=== PATIENT | male | born 1955 | race Caucasian/White ===

== ENCOUNTER 2018-07-31 18:16 | Observation (INO) ==
[2018-07-31] MEDS ORDERED: Naloxone 0.4 MG/ML INJ IVP PRN (21:42)
--- NOTE | 2018-07-31 21:56 | Internal Med History&Physical ---
Date of Encounter: 08/01/18 Time of Encounter: 21:00 Internal Medicine - H&P: HPI Chief complaint: TIA Admitted From: Hospital to Hospital Transfer Plans for Post Hospital Care: Home History of present illness: Mr. House is a 62 year old male Patient presented to the emergency room at [facility] for right sided weakness. He says it began when he tried to wake up this afternoon. 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 He says that he was unable to even get the covers off, and struggled to walk over to the bathroom. He is never had symptoms like this before. He has however had history of left foot drop about 8-10 years ago, which resolved on its own. He says a neurologist told him that his wallet was too large and was pinching a nerve in his leg. Upon arrival to the emergency room his symptoms had improved. In the emergency room patient's CBC was within normal limits, BMP was within normal limits. Troponins are undetectable, EKG was normal sinus rhythm and no ischemic changes. CT head was negative for intracranial abnormalities. A chest x-ray showed no acute cardiopulmonary abnormalities. Emergency room provided the patient with aspirin, and transferred him to [place] for further management. Upon my assessment patient states that he still has some right sided weakness, he has tried to go to the bathroom while here in his room and he noticed right leg weakness with walking. He denies changes in speech, but does state that he has a history of left eye lid droop which she has had since . He denies nausea, vomiting, diarrhea, constipation chest pain abdominal pain. Internal Medicine - H&P: Meds Allergy/AdvReac Type Severity Reaction Status Date / Time No Known Allergies Allergy Verified 08/01/18 05:31 All Systems PM: A 10-system review of systems was performed and is negative for pertinent findings except as documented above in the HPI. - Constitutional Vitals: Temp Pulse Resp BP Pulse Ox 97.5 F L 82 16 135/82 95 07/31/18 19:58 07/31/18 19:58 07/31/18 19:58 07/31/18 19:58 07/31/18 19:58 General appearance: Present: cooperative, A&O X 3, pleasant, no acute distress, answers questions appropriately Exam: As above - Head Head exam: Present: normal inspection - Eye Eye exam: Present: EOMI, normal appearance Additional comments: Mild left eyelid drooping, present since . - Neck Neck exam general surgery: Present: full ROM. Absent: tenderness - Respiratory Respiratory exam: Present: CTAB. Absent: chest wall tenderness, decreased breath sounds, rales, respiratory distress, rhonchi, wheezes - Cardiovascular Cardiovascular exam: Present: RRR. Absent: diastolic murmur, systolic murmur - GI/Abdominal GI/Abdominal exam: Present: normal bowel sounds, soft. Absent: tenderness - Extremities Exam Extremities exam: Present: warm, radial pulses palpable and symmetrical. Absent: calf tenderness, pedal edema, tenderness Additional comments: Slight less strength on the right upper extremity, compared to left. Lower extremities equal strength symmetrically. - Neurological Exam Neurological exam: Present: motor sensory deficit, no focal deficits, strengths equal and symetr throughout. Absent: facial droop, speech deficit Additional comments: Slightly decreased strength right upper extremity compared to left upper extremity - Skin Skin exam: Present: dry (here was as when I am ), normal color, warm Internal Med - H&P Results - Labs CBC & Chem 7: 08/01/18 04:29 08/01/18 04:29 - Assessment and plan (1) TIA (transient ischemic attack) Current Visit: Yes Status: Acute Assessment and plan: Patient does have residual right-sided weakness on exam, more notable in the upper extremity than the lower. MRI in the morning PT OT consult Patient already on statin, continue at discharge Consider echocardiogram carotid Dopplers pending MRI results (2) Right sided weakness Current Visit: Yes Status: Acute Assessment and plan: Secondary to likely stroke. Plan as above (3) Hypertension Current Visit: Yes Status: Acute Assessment and plan: Patient takes blood pressure medicines, however he does not know which ones. He has a list of medications in his wallet but he left as well at home. Continue to monitor blood pressures, permissive hypertension allowed Follow-up with patient's pharmacy to complete med rec Qualifiers: Hypertension type: essential hypertension Qualified Code(s): I10 - Essential (primary) hypertension (4) Hyperlipidemia Current Visit: Yes Status: Acute Assessment and plan: Continue statin Qualifiers: Hyperlipidemia type: unspecified Qualified Code(s): E78.5 - Hyperlipidemia, unspecified (5) DVT prophylaxis Current Visit: Yes Status: Acute Assessment and plan: Heparin subcutaneous - Time Spent With Patient Total time spent is greater than 50% in coordination of care (as documented) at patient's floor/unit and/or counseling patient: Greater than 35 minutes
[2018-08-01 04:59] LABS: Hemoglobin 13.7 g/dL (12.9-16.9); Mean Corpuscular HGB Conc 33.4 g/dL (31.6-35.5); Mean Corpuscular Hemoglobin 30.6 pg (28.0-33.3); Mean Corpuscular Volume 91.7 fL (83.0-100.0); Mean Platelet Volume 10.6 fL (9.4-12.4); Platelet Count 198 K/mcL (140-400); Red Blood Count 4.47 M/mcL (4.19-5.50); Red Cell Distribution Width 14.2 % (11.5-14.5)
[2018-08-01 05:23] LABS: BUN/Creatinine Ratio 20 (6-26); Blood Urea Nitrogen 20 mg/dL (8-23); Carbon Dioxide 21 mEq/L (23-29); Chloride 107 mEq/L (98-107); Chol/HDL Ratio 5.4 (0-4.9); Cholesterol 168 mg/dL (< 200); Glucose 125 mg/dL (70-105); HDL Cholesterol 31 mg/dL (40-59); LDL Cholesterol,Calculated 71 mg/dL (0-99); Osmolality,Calculated 288 (280-300); Potassium 3.8 mEq/L (3.5-5.1); Sodium 137 mEq/L (136-145); Triglycerides 330 mg/dL (< 150); eGFR For Non-African Americans > 60 (> 60)
[2018-08-01] MEDS: *HR* Heparin 5,000 UNIT/ML VIAL SQ SCH ×2 (05:38→16:51)
--- NOTE | 2018-08-01 12:09 | Internal Med Progress Note ---
Hospitalist Progress Note - Encounter Date of Encounter: 08/01/18 Time of Encounter: 12:09 - Subjective Interval History: Patient was seen and examined at bedside. Currently no neurological deficits noted. Patient is able to ambulate without difficulty however he does state he feels rather off. MRI does reveal small acute infarct involving left frontal parietal white matter. Discussed findings with the patient and patient's family and answered questions - Exam Vitals: Temp Pulse Resp BP Pulse Ox 97.8 F 80 18 130/82 94 08/01/18 11:48 08/01/18 11:48 08/01/18 11:48 08/01/18 11:48 08/01/18 11:48 Exam: General appearance: Present: cooperative, A&O X 3, pleasant, no acute distress, answers questions appropriately Exam: - Head Head exam: Present: normal inspection - Eye Eye exam: Present: EOMI, normal appearance Additional comments: Mild left eyelid drooping, present since . - Neck Neck exam general surgery: Present: full ROM. Absent: tenderness - Respiratory Respiratory exam: Present: CTAB. Absent: chest wall tenderness, decreased breath sounds, rales, respiratory distress, rhonchi, wheezes - Cardiovascular Cardiovascular exam: Present: RRR. Absent: diastolic murmur, systolic murmur - GI/Abdominal GI/Abdominal exam: Present: normal bowel sounds, soft. Absent: tenderness - Extremities Exam Extremities exam: Present: warm, radial pulses palpable and symmetrical. Absent: calf tenderness, pedal edema, tenderness Additional comments: Slight less strength on the right upper extremity, compared to left. Lower extremities equal strength symmetrically. - Neurological Exam Neurological exam: Present: motor sensory deficit, no focal deficits, strengths equal and symetr throughout. Absent: facial droop, speech deficit Additional comments: Slightly decreased strength right upper extremity compared to left upper extremity - Skin Skin exam: Present: dry, normal color, warm - Assessment and Plan (1) TIA (transient ischemic attack) Current Visit: Yes Status: Acute Assessment and Plan: Patient presented with right-sided weakness and difficulty ambulating which did resolve on its on has a history of hypertension hyperlipidemia no previous strokes. CT of head was negative MRI does reveal a small acute infarct involving left frontal parietal white matter no intracranial hemorrhage or mass effect. Continue with statin Aspirin daily Monitor blood pressure allow for permissive hypertension Consult neurology Continuous cardiac monitoring Neuro checks Cardiac echo Carotid Doppler PT OT eval (2) DVT prophylaxis Current Visit: Yes Status: Acute Assessment and Plan: Heparin subcutaneous (3) Hyperlipidemia Current Visit: Yes Status: Acute (4) Hypertension Current Visit: Yes Status: Acute Assessment and Plan: 1 we will hold blood pressure medicine for now allowing for permissive hypertension and resume upon discharge Currently blood pressure is controlled - Time Spent with Patient Total time spent is greater than 50% in coordination of care (as documented) at patient's floor/unit and/or counseling patient: Internal Medicine: Result - Labs CBC & Chem 7: 08/01/18 04:29 08/01/18 04:29 Labs: Short CBC 08/01/18 Range/Units 04:29 WBC 6.3 (4.3-11.1) K/mcL Hgb 13.7 (12.9-16.9) g/dL Hct 41.0 (37.5-50.1) % Plt Count 198 (140-400) K/mcL BMP 08/01/18 04:29 Sodium 137 Potassium 3.8 Chloride 107 Carbon Dioxide 21 L BUN 20 Creatinine 0.99 Glucose 125 H Calcium 9.0 - Impressions Impressions Brain MRI 08/01/18 21:45 IMPRESSION: Small acute infarct involving left frontal-parietal white matter. No intracranial hemorrhage or mass effect. Background of mild cerebral white matter disease, most likely chronic microvascular ischemic change. The findings were sent to the Radiology Results Communication [facility] at 11:50 am on 08/01/2018to be communicated to a licensed caregiver. D/ / Jani Saeed MD / Jani Saeed MD Interpreting Provider: Jani Saeed MD Consult Discharge Plan - Plan Referrals: Yandy Bates MD [Primary Care Provider] - (3) Hyperlipidemia Qualifiers: Hyperlipidemia type: unspecified Qualified Code(s): E78.5 - Hyperlipidemia, unspecified (4) Hypertension Qualifiers: Hypertension type: essential hypertension Qualified Code(s): I10 - Essential (primary) hypertension
[2018-08-01] MEDS: Aspirin 81 MG TAB.CHEW PO SCH (14:41)
--- NOTE | 2018-08-01 16:08 | Neurology - Consult Note ---
Date of Encounter: 08/01/18 Time of Encounter: 16:01 Assessment and Plan (1) CVA (cerebral vascular accident) Current Visit: Yes Status: Acute 8o year old woman with HTN, hyperlipidemia, obesity who developed acute onset of right sided weakness, slurred speech and balance difficulty, consistent with the finding of small lacunar infarct at the left fronto-parietal region. This is likely small vessel lacunar infarct related to hyperlipidemia/HTN/genetics. Will recommend full stroke work up including echocardiography, carotid artery duplex study. Agree with Aspirin 81mg daily, statin therapy for hyperlipidemia. He may benefit from outpatient PT. May benefit from getting outpatient sleep study. Total time spend on this patient is approximately 50 minutes and more than 50% of time was spent on direct patient care Qualifiers: CVA mechanism: unspecified Qualified Code(s): I63.9 - Cerebral infarction, unspecified History of Present Illness Chief complaint: right sided weakness and slurred speech HPI: Mr. House is a 62 year old male with PMH significant for obesity, HTN, hyperlipidemia who developed acute onset of right sided weakness, slurred speech and balance difficulty. 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 In the beginning he had to use his left hand to help moving his right hand and arm. MRI of brain showed small acute ischemic infarct at the left frontal parietal white matter, no edema and no mass effects noted. Today at the time of the interview, his weakness is significantly improved. Still has mild loss of dexterity to the right side. Is able to walk without assistance. Started him on Aspirin 81mg daily Medications and Allergies Levothyroxine [Synthroid] 50 mcg PO DAILY 08/01/18 [History] Losartan/Hydrochlorothiazide [Hyzaar 100-25 Tablet] 1 tab PO DAILY 08/01/18 [History] Lovastatin [Mevacor] 20 mg PO HS 08/01/18 [History] Tamsulosin HCl [Flomax] 0.4 mg PO DAILY 08/01/18 [History] dilTIAZem HCl [Diltiazem 24Hr Cd] 120 mg PO DAILY 08/01/18 [History] Allergy/AdvReac Type Severity Reaction Status Date / Time No Known Allergies Allergy Verified 08/01/18 05:31 All Systems: The remainder of the systems were reviewed and are negative Physical Examination - Vital Signs Vital Signs: Initial Vital Signs Temp Pulse Resp BP Pulse Ox 97.5 F L 82 16 135/82 95 07/31/18 19:58 07/31/18 19:58 07/31/18 19:58 07/31/18 19:58 07/31/18 19:58 - Constitutional General appearance: comfortable - Neurologic Detailed motor examination: full strength in all major muscle groups (Slightly loss of dexterity noted to the right arm and leg) Motor examination - right side: 5/5: deltoids, biceps, triceps, wrist flexion, wrist extension, environmental marketing representative, hip flexors, tibialis Anterior, quadriceps, toe extension (EHL), plantarflexion Motor examination - left side: 5/5: deltoids, biceps, triceps, wrist flexion, wrist extension, hip flexors, environmental marketing representative, quadriceps, tibialis Anterior, toe extension (EHL), plantarflexion Detailed sensory examination: intact Posture: other (None) Reflex and gait examination: intact Reflexes: Biceps: 1+, Triceps: 1+, Brachioradialis: 1+, Patella: 1+, Achilles: 1+ Mental Status Examination: awake, alert, oriented to person, oriented to place, oriented to time, follows commands appropriately, answers questions appropriately, no agnosia, no aphasia, no aproxia Cranial nerve examination: PERRL, EOMI, visual rivero intact, corneal reflexes brisk symmetrically, sensory to face intact, mastication intact, no facial asymmetry is present, no dysarthria, hearing is intact symmetrically, soft palate elevates bilaterally upon phonation, gag reflex intact, flexes SCM and trapezius muscles symmetrically with full power, tongue protrudes midline, no atrophy or facial fasiculations present Cerebellar examination: no dysmetria, performs finger to nose and heel to quiroga symmetrically without ataxia, no gait ataxia, no truncal ataxia, no difficulty with rapid alternating movements Results - Laboratory Findings CBC and BMP: 08/01/18 04:29 08/01/18 04:29 Abnormal lab findings: Abnormal lab results Carbon Dioxide 21 mEq/L (23-29) L 08/01/18 04:29 Glucose 125 mg/dL (70-105) H 08/01/18 04:29 Triglycerides 330 mg/dL (< 150) H 08/01/18 04:29 VLDL Cholesterol, Calc 66 mg/dL (< 31) H 08/01/18 04:29 HDL Cholesterol 31 mg/dL (40-59) L 08/01/18 04:29 Cholesterol/HDL Ratio 5.4 (0-4.9) H 08/01/18 04:29 - Diagnostic Findings Additional findings: MRI OF THE BRAIN WITHOUT CONTRAST 08/01/2018 11:40 am TECHNIQUE: Multiplanar multisequence MRI of the brain was performed without the administration of intravenous contrast. COMPARISON: None. HISTORY: ORDERING SYSTEM PROVIDED HISTORY: Right-sided weakness Right-sided weakness for 1 day FINDINGS: INTRACRANIAL STRUCTURES/VENTRICLES: Small acute infarct involving left frontal-parietal centrum semiovale. Susceptibility weighted imaging is limited by motion artifact. There is no evidence of intracranial hemorrhage. The ventricles and cisterns are normal in size and configuration. Normal intracranial arterial flow voids are preserved. Mild spotty cerebral white matter disease is present. Sellar and suprasellar regions are unremarkable. The cerebellar tonsils are normal in position. ORBITS: The visualized portion of the orbits demonstrate no acute abnormality. SINUSES: The visualized paranasal sinuses and mastoid air cells are well aerated. BONES/SOFT TISSUES: The bone marrow signal intensity appears normal. The soft tissues demonstrate no acute abnormality. MR/MR head/brain wo con IMPRESSION: Small acute infarct involving left frontal-parietal white matter. No intracranial hemorrhage or mass effect. Background of mild cerebral white matter disease, most likely chronic microvascular ischemic change. The findings were sent to the Radiology Results Communication Center at 11:50 am on 08/01/2018to be communicated to a licensed caregiver. D/ / Jani Saeed MD / Jani Saeed MD Interpreting Provider: Jani Saeed MD Consult Discharge Plan - Plan Referrals: Yandy Bates MD [Primary Care Provider] -
[2018-08-01] MEDS ORDERED: Perflutren Lipid Microsphere 1.3 ML in 0.9 % Sodium Chloride 8.7 ML IVP ONE (21:31)
[2018-08-02] MEDS: *HR* Heparin 5,000 UNIT/ML VIAL SQ SCH ×2 (06:14→17:04)
[2018-08-02] MEDS: Aspirin 81 MG TAB.CHEW PO SCH (07:50)
--- NOTE | 2018-08-02 08:42 | Neurology Progress Note ---
Addendum entered and electronically signed by Nawaf Chilel MD 08/02/18 13:35: Patient is seen and examined. Carotid artery duplex and echocardiography results explained to the patient. he is to get MARIANNA per game advisor recommendation due to the finding of echogenic structure at the tip f right caronary cups which is likely incidental finding and has no relationship with the current stroke. Carotid artery duplex showed bilateral ICA are patent. No further testing will be ordered from neurology perspective. Please continue medical and supportive care Original Note: <Javier Jean - Last Filed: 08/02/18 13:18> Date of Encounter: 08/02/18 Time of Encounter: 08:42 Assessment and Plan (1) CVA (cerebral vascular accident) Current Visit: Yes Status: Acute Patient has small lacunar infarct at the left frontoparietal region. His third speech has resolved. He has difficulty with finger to nose, heel to quiroga and rapid alternating movements on the right side but this is improved since admissi on. Echocardiogram: LVEF 50-55 percent, no mention of PFO. Patient does have a 0.5x0.7cm echogenic structure at the tip of the right coranary cusp. will need MARIANNA as per report. Carotid artery duplex bilaterally are preliminarily negative Patient will need to be discharged on aspirin, statin. Patient will follow up with Dr. Chilel for outpatient sleep study. Qualifiers: CVA mechanism: unspecified Qualified Code(s): I63.9 - Cerebral infarction, unspecified (2) Hypertension Current Visit: Yes Status: Acute Qualifiers: Hypertension type: essential hypertension Qualified Code(s): I10 - Essential (primary) hypertension (3) Hyperlipidemia Current Visit: Yes Status: Acute Qualifiers: Hyperlipidemia type: unspecified Qualified Code(s): E78.5 - Hyperlipidemia, unspecified Subjective Principal diagnosis: CVA Interval history: Patient reports that he continues to have trouble with coordination on his right side. His right-sided weakness has improved and slurred speech has resolved. He is able to ambulate independently. He is tolerating his diet. Objective - Constitutional Vitals: Temp Pulse Resp BP Pulse Ox 97.6 F 83 16 155/106 95 08/02/18 06:59 08/02/18 06:59 08/02/18 06:59 08/02/18 06:59 08/02/18 07:55 - Neurological Exam Sensorimotor examination: Present: intact Motor Examination: Present: full strength in all major muscle groups (Slightly loss of dexterity noted to the right arm and leg) Motor examination - right side: 5/5: deltoids, biceps, triceps, wrist flexion, wrist extension, cessation systems outreach specialist, hip flexors, tibialis Anterior, quadriceps, toe extension (EHL), plantarflexion Motor examination - left side: 5/5: deltoids, biceps, triceps, wrist flexion, wrist extension, hip flexors, cessation systems outreach specialist, quadriceps, tibialis Anterior, toe extension (EHL), plantarflexion Sensation intact: Present: intact Posture: Present: other (None) Reflex and gait examination: intact Reflexes: Biceps: 1+, Triceps: 1+, Brachioradialis: 1+, Patella: 1+, Achilles: 1+ Mental Status Examination: Present: awake, alert, oriented to person, oriented to place, oriented to time, follows commands appropriately, answers questions appropriately, no agnosia, no aphasia, no aproxia Cranial nerve examination: Present: PERRL, EOMI, visual rivero intact, sensory to face intact, mastication intact, no facial asymmetry is present, no dysarthria, hearing is intact symmetrically, soft palate elevates bilaterally upon phonation, flexes SCM and trapezius muscles symmetrically with full power, tongue protrudes midline, no atrophy or facial fasiculations present Cerebellar examination: Present: no dysmetria, performs finger to nose and heel to quiroga symmetrically without ataxia (Difficulty with right [id number] and [id number]), no gait ataxia, no truncal ataxia, no difficulty with rapid alternating movements (Reduced on the right and) Results - Laboratory Findings CBC and BMP: 08/01/18 04:29 08/02/18 09:35 Abnormal lab findings: Abnormal lab results Carbon Dioxide 21 mEq/L (23-29) L 08/01/18 04:29 Glucose 125 mg/dL (70-105) H 08/01/18 04:29 Triglycerides 330 mg/dL (< 150) H 08/01/18 04:29 VLDL Cholesterol, Calc 66 mg/dL (< 31) H 08/01/18 04:29 HDL Cholesterol 31 mg/dL (40-59) L 08/01/18 04:29 Cholesterol/HDL Ratio 5.4 (0-4.9) H 08/01/18 04:29 Consult Discharge Plan - Plan Additional Instructions: You will be provided a prescription for outpatient Physical Therapy upon D/C home. You can take this prescription to any Physical Therapy facility you would like to arrange the therapy. Referrals: Yandy Bates MD [Primary Care Provider] - 08/07/18 2:00 pm <Nawaf Chilel - Last Filed: 08/02/18 13:32> Date of Encounter: 08/02/18 Assessment and Plan (1) CVA (cerebral vascular accident) Current Visit: Yes Status: Acute Qualifiers: CVA mechanism: unspecified Qualified Code(s): I63.9 - Cerebral infarction, unspecified Objective - Constitutional Vitals: Temp Pulse Resp BP Pulse Ox 97.7 F 87 18 145/89 95 08/02/18 11:00 08/02/18 11:00 08/02/18 11:00 08/02/18 11:00 08/02/18 11:00 Results - Laboratory Findings CBC and BMP: 08/01/18 04:29 08/02/18 09:35 Abnormal lab findings: Abnormal lab results Carbon Dioxide 22 mEq/L (23-29) L 08/02/18 09:35 Glucose 228 mg/dL (70-105) H 08/02/18 09:35 Triglycerides 330 mg/dL (< 150) H 08/01/18 04:29 VLDL Cholesterol, Calc 66 mg/dL (< 31) H 08/01/18 04:29 HDL Cholesterol 31 mg/dL (40-59) L 08/01/18 04:29 Cholesterol/HDL Ratio 5.4 (0-4.9) H 08/01/18 04:29
[2018-08-02] MEDS: Diltiazem CD (24hr) 120 MG CAPSULE PO SCH (09:43)
[2018-08-02] MEDS: Losartan/HCTZ 50-12.5 TABLET PO SCH (09:59)
[2018-08-02 10:17] LABS: BUN/Creatinine Ratio 22 (6-26); Blood Urea Nitrogen 20 mg/dL (8-23); Calcium 8.8 mg/dL (8.6-10.3); Carbon Dioxide 22 mEq/L (23-29); Chloride 106 mEq/L (98-107); Glucose 228 mg/dL (70-105); Osmolality,Calculated 292 (280-300); Potassium 3.9 mEq/L (3.5-5.1); Sodium 136 mEq/L (136-145); eGFR For Non-African Americans > 60 (> 60)
--- NOTE | 2018-08-02 19:21 | Internal Med Progress Note ---
Hospitalist Progress Note - Encounter Date of Encounter: 08/02/18 Time of Encounter: 15:00 - Subjective Interval History: Patient was seen and examined at bedside. Currently no neurological deficits noted. Patient is able to ambulate without difficulty -I did review carotid duplex results as well as cardiac echo results- he will undergo MARIANNA in am per c ardiology recommendations. He verbalized understanding - Exam Vitals: Temp Pulse Resp BP Pulse Ox 97.9 F 79 16 120/79 94 08/02/18 19:14 08/02/18 19:14 08/02/18 19:14 08/02/18 19:14 08/02/18 19:14 Exam: General appearance: Present: cooperative, A&O X 3, pleasant, no acute distress, answers questions appropriately Exam: - Head Head exam: Present: normal inspection - Eye Eye exam: Present: EOMI, normal appearance Additional comments: Mild left eyelid drooping, present since . - Neck Neck exam general surgery: Present: full ROM. Absent: tenderness - Respiratory Respiratory exam: Present: CTAB. Absent: chest wall tenderness, decreased breath sounds, rales, respiratory distress, rhonchi, wheezes - Cardiovascular Cardiovascular exam: Present: RRR. Absent: diastolic murmur, systolic murmur - GI/Abdominal GI/Abdominal exam: Present: normal bowel sounds, soft. Absent: tenderness - Extremities Exam Extremities exam: Present: warm, radial pulses palpable and symmetrical. Absent: calf tenderness, pedal edema, tenderness Additional comments: Slight less strength on the right upper extremity, compared to left. Lower extremities equal strength symmetrically. - Neurological Exam Neurological exam: Present: motor sensory deficit, no focal deficits, strengths equal and symetr throughout. Absent: facial droop, speech deficit Additional comments: Slightly decreased strength right upper extremity compared to left upper extremity - Skin Skin exam: Present: dry, normal color, warm - Assessment and Plan (1) CVA (cerebral vascular accident) Current Visit: Yes Status: Acute Assessment and Plan: Patient has small lacunar infarct at the left frontoparietal region. No weakness or slurre speech noted Echocardiogram: LVEF 50-55 percent, no mention of PFO. Patient does have a 0.5x0.7cm echogenic structure at the tip of the right coranary cusp. Will undergo MARIANNA in am per cardioogy report recommendations NPO after midnight for MARIANNA Carotid artery duplex bilaterally are preliminarily negative Patient will need to be discharged on aspirin, statin per neurology recommendations Patient will follow up with Dr. Chilel for outpatient sleep study. PT as outpatient (2) Hypertension Current Visit: Yes Status: Acute Assessment and Plan: 1 we will hold blood pressure medicine for now allowing for permissive hypertension and resume upon discharge Currently blood pressure is controlled 08/02 we will resume home medications (3) Hyperlipidemia Current Visit: Yes Status: Acute Assessment and Plan: cont with statin - Time Spent with Patient Total time spent is greater than 50% in coordination of care (as documented) at patient's floor/unit and/or counseling patient: Internal Medicine: Result - Labs CBC & Chem 7: 08/01/18 04:29 08/02/18 09:35 Labs: BMP 08/02/18 09:35 Sodium 136 Potassium 3.9 Chloride 106 Carbon Dioxide 22 L BUN 20 Creatinine 0.93 Glucose 228 H Calcium 8.8 Consult Discharge Plan - Plan Additional Instructions: You will be provided a prescription for outpatient Physical Therapy upon D/C home. You can take this prescription to any Physical Therapy facility you would like to arrange the therapy. Referrals: Yandy Bates MD [Primary Care Provider] - 08/07/18 2:00 pm (1) CVA (cerebral vascular accident) Qualifiers: CVA mechanism: unspecified Qualified Code(s): I63.9 - Cerebral infarction, unspecified (2) Hypertension Qualifiers: Hypertension type: essential hypertension Qualified Code(s): I10 - Essential (primary) hypertension (3) Hyperlipidemia Qualifiers: Hyperlipidemia type: unspecified Qualified Code(s): E78.5 - Hyperlipidemia, unspecified
[2018-08-03 03:33] LABS: Basophils % 0.4 %; Eosinophils # 0.2 K/mcL (0.0-0.6); Hematocrit 45.5 % (37.5-50.1); Immature Granulocytes % 0.3 % (0-4); Lymphocytes # 2.5 K/mcL (0.6-4.6); Lymphocytes % 30.9 %; Mean Corpuscular HGB Conc 34.1 g/dL (31.6-35.5); Mean Corpuscular Hemoglobin 30.7 pg (28.0-33.3); Mean Corpuscular Volume 90.1 fL (83.0-100.0); Mean Platelet Volume 10.5 fL (9.4-12.4); Monocytes # 0.8 K/mcL (0.0-1.3); Monocytes % 9.4 %; Neutrophils # 4.5 K/mcL (1.6-8.9); Platelet Count 211 K/mcL (140-400); Red Blood Count 5.05 M/mcL (4.19-5.50); Red Cell Distribution Width 13.9 % (11.5-14.5)
[2018-08-03 03:34] LABS: Hemoglobin 15.5 g/dL (12.9-16.9)
[2018-08-03 03:50] LABS: BUN/Creatinine Ratio 15 (6-26); Blood Urea Nitrogen 15 mg/dL (8-23); Calcium 9.3 mg/dL (8.6-10.3); Carbon Dioxide 24 mEq/L (23-29); Chloride 105 mEq/L (98-107); Glucose 115 mg/dL (70-105); Osmolality,Calculated 284 (280-300); Potassium 4.4 mEq/L (3.5-5.1); Sodium 136 mEq/L (136-145); eGFR For Non-African Americans > 60 (> 60)
[2018-08-03] MEDS: *HR* Heparin 5,000 UNIT/ML VIAL SQ SCH (05:23)
[2018-08-03] MEDS ORDERED: Lidocaine Viscous Oral Soln 15 ML SOLUTION MM PRN (10:06)
[2018-08-03] MEDS ORDERED: 0.9 % Sodium Chloride 500 ML IVC ONE (10:07)
[2018-08-03] MEDS ORDERED: *HR* Midazolam HCl 2 MG/2 ML VIAL IVP PRN (10:07)
[2018-08-03] MEDS ORDERED: Tetracaine/Benzocaine/Butamben 1 SPRAY AEROSOL MM ONE (10:07)
[2018-08-03] MEDS ORDERED: *HR* Midazolam HCl 5 MG/5 ML VIAL IVP ONE ×2 (10:36)
[2018-08-03] MEDS: *HR* FentaNYL (PF) 100 MCG/2 ML VIAL IVP PRN ×2 (10:50→10:55)
--- NOTE | 2018-08-03 11:18 | Discharge Summary ---
- NOTES TO OUTPATIENT PROVIDER Notes to Outpatient Provider: Experienced small lacunar infarct of the left frontoparietal region no deficits-will need follow up with outpatient PT as well as follow-up with Dr. Helms for outpatient sleep study. Continue with aspirin and statin- monitor BP Orders not resulted at time of discharge: Pending orders 08/03/18 07:30 EV MARIANNA transesophageal echo Routine Date of Encounter: 08/03/18 Time of Encounter: 11:14 - Discharge Diagnosis (1) CVA (cerebral vascular accident) Priority: Primary Status: Acute Qualifiers: CVA mechanism: unspecified Qualified Code(s): I63.9 - Cerebral infarction, unspecified (2) Hypertension Priority: Secondary Status: Acute Qualifiers: Hypertension type: essential hypertension Qualified Code(s): I10 - Essential (primary) hypertension (3) Hyperlipidemia Priority: Secondary Status: Acute Qualifiers: Hyperlipidemia type: unspecified Qualified Code(s): E78.5 - Hyperlipidemia, unspecified Hospital course: Mr. House is a 62 year old male past medical history hypertension hyperlipidemia obesity patient presented to [facility] after developing acute onset of right-sided weakness slurred speech and balance difficulty. 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 Stroke workup was completed including echocardiogram and carotid artery duplex CT of head with no acute abnormalities MRI did show small acute ischemic infarct of left frontal parietal. Patient's on aspirin 81 mg daily as well as a statin. Neurology was consulted and recommended outpatient sleep study and to continue with aspirin and statin. Echo was completed which did show a echogenic structure at the tip of the right coronary cast and patient underwent MARIANNA per cardiology recommendations-no thrombus in the LV or LA appendage no evidence of PFO or ASD mild atherosclerotic plaque in the distal aortic arch and descending thoracic aorta. Advised patient to follow-up with primary care provider since this provider does not pass and can adjust medications accordingly also advised to follow-up with outpatient sleep study with neurology patient verbalized understanding. Patient is hemodynamically stable he is ready for discharge. Discharge discussed with: patient - Time Spent with Patient Total time spent providing and/or coordinating discharge services: - Discharge Medications Prescriptions: Aspirin 81 mg PO DAILY #30 tab.chew Home Medications: Levothyroxine [Synthroid] 50 mcg PO DAILY 08/01/18 [History] Losartan/Hydrochlorothiazide [Hyzaar 100-25 Tablet] 1 tab PO DAILY 08/01/18 [History] Lovastatin [Mevacor] 20 mg PO HS 08/01/18 [History] Tamsulosin HCl [Flomax] 0.4 mg PO DAILY 08/01/18 [History] dilTIAZem HCl [Diltiazem 24Hr Cd] 120 mg PO DAILY 08/01/18 [History] Aspirin 81 mg PO DAILY #30 tab.chew 08/03/18 [Rx] Allergies/Adverse Reactions: Allergy/AdvReac Type Severity Reaction Status Date / Time No Known Allergies Allergy Verified 08/01/18 05:31 Date of admission: 07/31/18 19:46 Primary care physician: Yandy Bates MD Consults: 07/31/18 21:44 Consult to Occupational Therapy [CONS] Routine Comment: Evaluate, develop and implement POC Reason for Consult: Patient had right-sided weakness, upper and lower extremities. Still experiencing some residual weakness. Does patient have active BEDREST order?: No Is patient medically & hemodynamically stable?: Yes Consult to Physical Therapy [CONS] Routine Comment: Evaluate, develop and implement POC Reason for Consult: Patient had right-sided weakness, upper and lower extremities. Still experiencing some residual weakness. Does patient have active BEDREST order?: No Is patient medically & hemodynamically stable?: Yes 08/01/18 12:02 Consult to Neurology [CONS] Routine Consulting Provider: [facility] Reason for Consult: TIA Time Notified: 12:03 Call Completed: Yes Discharging clinician: Nilda Sage Anticipated date of discharge: 08/03/18 - Constitutional Vitals: Temp Pulse Resp BP Pulse Ox 98.2 F 89 14 142/97 96 08/03/18 10:28 08/03/18 10:28 08/03/18 10:28 08/03/18 10:28 08/03/18 10:28 General appearance: Present: cooperative, A&O X 3, pleasant, no acute distress, answers questions appropriately Exam: General appearance: Present: cooperative, A&O X 3, pleasant, no acute distress, answers questions appropriately Exam: - Head Head exam: Present: normal inspection - Eye Eye exam: Present: EOMI, normal appearance Additional comments: Mild left eyelid drooping, present since . - Neck Neck exam general surgery: Present: full ROM. Absent: tenderness - Respiratory Respiratory exam: Present: CTAB. Absent: chest wall tenderness, decreased breath sounds, rales, respiratory distress, rhonchi, wheezes - Cardiovascular Cardiovascular exam: Present: RRR. Absent: diastolic murmur, systolic murmur - GI/Abdominal GI/Abdominal exam: Present: normal bowel sounds, soft. Absent: tenderness - Extremities Exam Extremities exam: Present: warm, radial pulses palpable and symmetrical. Absent: calf tenderness, pedal edema, tenderness Additional comments: Slight less strength on the right upper extremity, compared to left. Lower extremities equal strength symmetrically. - Neurological Exam Neurological exam: Present: motor sensory deficit, no focal deficits, strengths equal and symetr throughout. Absent: facial droop, speech deficit Additional comments: Slightly decreased strength right upper extremity compared to left upper extremity - Skin Skin exam: Present: dry, normal color, warm - Patient Status Disposition: Home, Self-Care Condition: Good Functional capacity at discharge: independent ambulation Overall status at discharge: patient is back to baseline - Discharge Instructions Follow Up With: Yandy Bates MD [Primary Care Provider] - 08/07/18 2:00 pm Nawaf Chilel MD [Partnered Physician] - (Our offices will call you with an appointment.) Additional Instructions: You will be provided a prescription for outpatient Physical Therapy upon D/C home. You can take this prescription to any Physical Therapy facility you would like to arrange the therapy. - Diet and Activity Activity: as per physical therapy Diet: low fat, low cholesterol
[2018-08-03] MEDS: Diltiazem CD (24hr) 120 MG CAPSULE PO SCH (11:58)
[2018-08-03] MEDS: Losartan/HCTZ 50-12.5 TABLET PO SCH (11:58)
[2018-08-03] MEDS: Aspirin 81 MG TAB.CHEW PO SCH (11:58)
[2018-08-03 15:41] VITALS: BP 116/75
== END 2018-08-03 16:33 | disposition home or self-care (01) ==
LOC: 3BNU
PROVIDERS: ADMIT Internal Medicine; ATTEND Internal Medicine